=== PATIENT | male | born 1935 | race Caucasian/White ===

== ENCOUNTER 2024-04-01 17:57 | Emergency (ER) | payer MEDICARE, OTHER, SELFPAY ==
[2024-04-01 18:17] VITALS: BP 159/63
--- NOTE | 2024-04-01 18:31 | ED.GENMED ---
History of Present Illness
General
Chief Complaint: Head Injury
Source: patient, spouse and family
Exam Limitations: none
Time Seen by Provider: 04/01/24 18:12
Nursing documentation reviewed up to this point in time: agreed with
History of Present Illness
History of Present Illness:
88-year-old male with a past medical history as documented notable for A-fib on [facility] who presents to the ER for evaluation after trip and fall with head strike. Patient reports that he was walking in the garage and he had just gone from the
daylight into a dark garage; unfortunately he did not see one of the curbs near a parking space and tripped and fell forward. He hit the bridge of his nose on the concrete and scraped his left hand and right knee. He did not pass out. He was able
to get up on his own and has been ambulatory since the fall. He denies any headache, neck pain, chest pain, abdominal pain. He has chronic pain in his left shoulder no worse than usual since the fall, no other pain in his extremities. Sustained
various abrasions. He is unsure of his last tetanus shot.
Past History
Past History
ED Past Medical History: Arrthythmia (Atrial fibrillation), HTN and Hypercholesterolemia
ED Past Surgical History: Cardiac
Social History
Tobacco: Non-smoker
Review of Systems
Review of Systems
All Other Systems: ROS reviewed and negative except as documented in HPI and ROS
Respiratory: Denies trouble breathing
Cardiac: Denies chest pain
ABD/GI: Denies abdominal pain or nausea
: Denies flank pain
Musculoskeletal: Reports joint pain (Chronic and unchanged left shoulder pain); Denies neck pain or back pain
Neurological: Denies dizzy or headache
Phy Exam
Physical Exam
Physical Exam:
General: Awake, alert, oriented x3; no acute distress
Head: Normocephalic, mild abrasion to the nasal bridge, no cephalohematoma; no facial bone tenderness or instability
Eyes: Conjunctiva normal, EOMI without pain, pupils equal round and reactive to light bilaterally
Throat: Airway intact, handling secretions, tongue atraumatic
Neck: Trachea midline, no cervical spine tenderness and full painless range of motion of the cervical spine both on rotation and flexion/extension
Lungs: C breathing comfortably with no distress, normal pulse ox, normal respiratory rate, no chest wall tenderness
Heart: Regular rate, midline scar from prior sternotomy
Abd: Soft, non distended, nontender
Neuro: No gross deficits, ambulatory
Skin: Minor abrasion dorsum of the left fourth and fifth digit, minor abrasion to the right and left knee, minor abrasion of the nasal bridge
Extremities: Abrasions as above but no tenderness in the extremities, full painless range of motion all joints of the upper and lower extremities, ambulatory
Scores
Heart Failure Risk
Heart Failure Risk Score: Not Applicable
Heart Score for Chest Pain Patients
STEMI patient?: Not applicable
Withdrawal Assessment of Alcohol
Withdrawal Assessment Completed?: Not applicable
Course
Orders/Labs/Results
Orders:
Orders
04/01/24 17:59
CT Head W/o Iv Contrast Urgent
Comment:
Reason For Exam: Head injury on eliquis.
04/01/24 18:30
Tetanus/Diphth/Acelpertussis [Adacel] 0.5 ml IM .ONCE ONE
Vital Signs
Initial and Last Documented VS:
Initial Vital Signs
Temp Pulse Resp BP Pulse Ox
37.1 C 69 14 159/63 98
04/01/24 18:17 04/01/24 18:17 04/01/24 18:17 04/01/24 18:17 04/01/24 18:17
Last Documented Vital Signs
Temp Pulse Resp BP Pulse Ox
37.1 C 69 14 159/63 98
04/01/24 18:17 04/01/24 18:17 04/01/24 18:17 04/01/24 18:17 11/08/24 18:17
MDM/Problems Addressed
Differential Diagnosis Includes:
Abrasions; given age and anticoagulant must rule out traumatic brain bleed
MDM/Problems Addressed:
88-year-old male presents after mechanical trip and fall with head strike. No LOC, no serious complaints other than minor abrasions. Vitals and exam as above. Sent for CT head which was negative for any acute pathology. He denies neck pain, has
no tenderness in the cervical spine, no pain on range of motion�hold on C-spine imaging. No other serious injuries on secondary survey. Will update tetanus, cleaned and dressed abrasions. Stable for discharge.
Chronic conditions affecting care:
A-fib on Eliquis complicates this fall
Acute Exacerbation and/or Progression of Chronic Illness:
Hypertensive
Acute Exacerbation and/or Progression of Chronic Illness: HTN
*Radiology
Radiology exam reviewed: preliminary read by ED provider (No acute pathology) and radiology read reviewed
*Pulse Oximetry
Patient hypoxic: no
*Critical Care Note
Total Time (30-74mins, 75-104mins- exclusive of procedures): Not Applicable
Data Reviewed
Source: patient, spouse and family
Further Testing Considered But Not Given:
Considered CT cervical spine
ED Attending Note
-
Portions of this chart may have been created with voice recognition software.� Occasional wrong word or��sound alike� substitutions may have occurred due to the inherent limitations of voice recognition software.
Discharge Plan
Departure
Patient Disposition: Home (Routine Discharge)
Date of Disposition: 04/01/24
Time of Disposition: 18:30
Patient with high blood pressure during this ER visit?: Yes
Discharge Problem:
Abrasion of nose, Abrasion of knee, Abrasion of finger
Instructions: Wound Care (DC), Abrasions ED
Activity Restrictions/Additional Instructions:
Thank you for visiting the Emergency Department at [facility].
1. Please schedule a follow up appointment as directed. Call first thing tomorrow morning to make an appointment.
2. If indicated, please take your medications as instructed and indicated on discharge paperwork.
3. If any of your symptoms do not improve, or persist, or become more severe within 6-12 hours, please return to the emergency department for further care.
4. Please return to the emergency department if you develop a headache, neck pain/stiffness, fever greater than 100.4F, chest pain, shortness of breath, persistent nausea, vomiting, slurred speech, difficulty walking, numbness/tingling, weakness,
signs of infection or any other symptoms that are worrisome to you.
Please call [phone] if you have any questions.
Interventions
Interventions:
*Risk Screen - Suicide Last Done: 04/01/24 18:10
*General Assessment Last Done: 04/01/24 18:10
*Neglect/Abuse Screening Last Done: 04/01/24 18:10
ED- Fall Risk Assessment Last Done: 04/01/24 18:10
*ED COVID-19 Vaccine History Last Done: 04/01/24 18:12
ED- Neurological Assessment Last Done: 04/01/24 18:17
ED-Skin Assessment Last Done: 04/01/24 18:17
Discharge Date and Time
Print Language: MACEDONIAN
[2024-04-01] MEDS: ADACEL 0.5 ML IM (18:36)
== END 2024-04-01 18:53 | disposition home or self-care (01) ==
LOC: EMR 17:57
PROVIDERS: EMERGENCY PHYSICIAN Emergency Medicine; FAMILY PHYSICIAN Family Medicine
DX: S00.31XA Abrasion of nose, initial encounter (principal); S80.212A Abrasion, left knee, initial encounter; S80.211A Abrasion, right knee, initial encounter; S60.419A Abrasion of unspecified finger, initial encounter; W01.0XXA Fall on same level from slipping, tripping and stumbling without subsequent striking against object, initial encounter; Z23 Encounter for immunization; I48.91 Unspecified atrial fibrillation; I10 Essential (primary) hypertension; E78.00 Pure hypercholesterolemia, unspecified; Y93.01 Activity, walking, marching and hiking; Z79.01 Long term (current) use of anticoagulants
CPT/HCPCS: 99284; 90471; 70450; 90715